=== PATIENT | female | born 1950 | race Caucasian/White ===

== ENCOUNTER 2022-12-04 11:58 | Emergency (ER) | payer OTHER, BC ==
[2022-12-04 12:16] VITALS: TEMP 97.4
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
[2022-12-04 13:34] VITALS: BP 157/81; PULSE 53; RESP 15
== END 2022-12-04 14:16 | disposition home or self-care (01) ==
LOC: EC 11:58
DX: S16.1XXA Strain of muscle, fascia and tendon at neck level, initial encounter (principal); M43.12 Spondylolisthesis, cervical region; R00.1 Bradycardia, unspecified; I10 Essential (primary) hypertension; F12.90 Cannabis use, unspecified, uncomplicated; Z87.891 Personal history of nicotine dependence; Z95.1 Presence of aortocoronary bypass graft; V89.2XXA Person injured in unspecified motor-vehicle accident, traffic, initial encounter; Y92.411 Interstate highway as the place of occurrence of the external cause
CPT/HCPCS: 70450; 72125; 93005; 99285